=== PATIENT | female | born 1935 | race Two or more races ===

== ENCOUNTER 2023-05-24 10:08 | Emergency (ER) | payer OTHER ==
[~2023-05-24] VITALS: Ht 162.6 cm; Wt 47.6 kg
[2023-05-24 12:33] LABS: MEAN CORPUSCULAR HGB CONC 30.7 g/dl (32.0-36.0); PLATELET COUNT 326 K/uL (150-450); RED BLOOD COUNT 4.17 M/uL (4.00-6.00); RED CELL DISTRIBUTION WIDTH 21.6 % (11.5-14.5)
[2023-05-24 12:34] LABS: HEMOGLOBIN 8.6 g/dL (12.0-15.00); MEAN CELL VOLUME 67.1 fL (80.00-100.00); MEAN CORPUSCULAR HEMOGLOBIN 20.6 pg (27.00-32.0)
[2023-05-24 12:35] LABS: ERYTHROCYTE SEDIMENTATION RATE 60 mm/hr
[2023-05-24 13:00] LABS: ALBUMIN 3.7 gm/dL (3.4-5.0); ALKALINE PHOSPHATASE 60 U/L (50-136); ALT/SGPT 14 U/L (12-78); ANION GAP 7 (10.0-20.0); AST/SGOT 14 U/L (15-37); BILIRUBIN TOTAL 0.33 mg/dL (0.3-1.2); BLOOD UREA NITROGEN 12 mg/dL (7-18); BUN CREA RATIO 20 (7.0-25.0); CARBON DIOXIDE 30 mEq/L (21-32); CHLORIDE 103 mmol/L (98-107); GFR 94.34; GLOBULINA 4.2 G/DL (2.4-3.5); GLUCOSE FASTING 141 mg/dL (65-100); OSMOLALITY SERUM 274 MOSM/KG (275-295); POTASSIUM 3.75 mEq/L (3.5-5.1); SODIUM 136 mmol/L (136-145); TOTAL PROTEIN 7.9 gm/dL (6.4-8.2)
[2023-05-24 13:04] LABS: C-REACTIVE PROTEIN < 0.29 MG/DL (0.00-0.29)
== END 2023-05-24 15:33 | disposition home or self-care (01) ==
LOC: ER 10:08
PROVIDERS: General Practice
DX: C44.90 Unspecified malignant neoplasm of skin, unspecified (principal)
CPT/HCPCS: 36415; 70486; 96365; 96366; 99284; J3490; J7030; Q9965